=== PATIENT | male | born 1965 | race Hispanic/Latino ===

== ENCOUNTER → 2023-03-20 | Outpatient (CLI) | payer OTHER ==
[2023-03-20 12:11] LABS: BASOPHIL # 0.1 10^3/uL (0.0-0.1); BASOPHIL % 0.4 % (0.0-0.2); EOSINOPHIL % 0.2 % (0.0-5.0); HEMATOCRIT(ML) 28.5 % (37.0-53.0); HEMOGLOBIN 8.7 g/dL (13.9-16.3); LYMPHOCYTES % 17.5 % (24.0-44.0); MEAN CORP HGB 25.3 pg (26-34); MEAN CORP HGB CONCENTRATION 30.5 g/dL (33-36.5); MEAN CORP VOLUME 82.8 fL (78-100); MONOCYTES # 1.2 10^3/uL (0.3-0.8); MONOCYTES % 9.6 % (5.0-12.0); NEUTROPHILS % 71.9 % (41.0-85.0); PLATELET COUNT 537 10^3/uL (150-400); RED BLOOD CELL 3.44 10^6/uL (4.50-5.90); RED CELL DISTRIBUTION WIDTH 16.5 % (11.5-14.5); WHITE BLOOD CELL 12.5 10^3/uL (4.5-11.0)
[2023-03-20 12:12] LABS: +ADD MANUAL DIFF(NO CHRG) NO
[2023-03-20 12:21] LABS: ALBUMIN(ML) 3.5 g/dL (3.4-5.0); ALBUMIN/GLOBULIN RATIO 0.76; ANION GAP 12.4; CALCIUM 9.5 mg/dL (8.4-10.5); CARBON DIOXIDE 28.9 mmol/L (20.0-32); CREATININE SERUM 1.19 mg/dL (0.59-1.40); EST GFR, NON-AA 62.6 (>/=60); POTASSIUM 3.3 mmol/L (3.6-5.2); URIC ACID 10.8 mg/dL (3.5-7.2)
== END | disposition home or self-care (01) ==
LOC: RAD 11:43
PROVIDERS: ATTEND Nurse Practitioner Family
DX: I73.9 Peripheral vascular disease, unspecified (principal); M25.532 Pain in left wrist; M25.432 Effusion, left wrist; M12.832 Other specific arthropathies, not elsewhere classified, left wrist; M25.732 Osteophyte, left wrist; M25.832 Other specified joint disorders, left wrist
CPT/HCPCS: 36415; 80053; 84550; 85025; 73110-LT